=== PATIENT | male | born 1970 | race Caucasian/White ===

== ENCOUNTER 2016-09-22 16:42 | Emergency (ER) | payer OTHER ==
[~2016-09-22] VITALS: Ht 182.9 cm; Wt 172.4 kg
[~2016-09-22 16:42] MED LIST: BACTRIM,SEPT1 TABLET PO; FLONASE16 G1 BOTH NARES; KEFLEX500 MG PO; MOTRIN800 MG PO; NORCO 5/3251 TABLET PO; ZYRTEC10 M2 PO
[2016-09-22] MEDS ORDERED: TRIPLE ANTIB28.35 GM TP (17:20)
[2016-09-22 18:03] VITALS: BP 167/97
== END 2016-09-22 18:06 | disposition home or self-care (01) ==
LOC: EME 16:42
DX: R22.42 Localized swelling, mass and lump, left lower limb (principal); Z87.891 Personal history of nicotine dependence
CPT/HCPCS: 99281; 99284